=== PATIENT | female | born 1950 | race Caucasian/White ===

== ENCOUNTER 2017-10-21 12:19 | Emergency (ER) | payer MEDICARE, MEDICAID ==
--- NOTE | 2017-10-21 12:29 | ER Report ---
History and Physical Time Seen By MD: 12:29 HPI/ROS CHIEF COMPLAINT: Chest pain HISTORY OF PRESENT ILLNESS: This is a 66-year-old female presents to the emergency department for chest pain. Patient states that [place] is [place] became fatigued at around 10:[address] [facility] to rest, about 11:30 she developed some left-sided chest pain into the left arm and neck. Patient had a transient episode of nausea, no vomiting she also states that she was diaphoretic however she is unsure if this is related to the heat. Patient became concerned turnaround and drove herself to the hospital for further evaluation. Patient arrives alert and oriented. Chest pain is resolving. No rashes, shortness of breath, headaches or any other complaints at this time. REVIEW OF SYSTEMS: Constitutional: As above. Eyes: No discharge. ENT: No sore throat. Cardiovascular: As above. Respiratory: No cough, no shortness of breath. Gastrointestinal: As above. Genitourinary: No hematuria. Musculoskeletal: No back pain. Skin: No rashes. Neurological: No headache. Allergies: Coded Allergies: Penicillins (Verified Allergy, Mild, 10/21/17) NSAIDS (Non-Steroidal Anti-Inflamma (Verified Allergy, Unknown, 10/21/17) Sulfa (Sulfonamide Antibiotics) (Verified Allergy, Unknown, 10/21/17) latex (Verified Allergy, Unknown, 10/21/17) Home Meds No Active Prescriptions or Reported Meds Past Medical/Surgical History The patient has a past medical and surgical history of hypertension, had "some cardiac tests done recently, everything was negative", arthritis, back pain, neck pain, hysterectomy, right wrist surgery. Reviewed Nurses Notes: Yes Constitutional Vital Sign - Last 24 Hours 10/21/17 10/21/17 10/21/17 10/21/17 12:19 12:23 12:26 12:34 Temp 98.4 Pulse ??? 107 99 Resp 18 15 B/P (MAP) 154/92 (112) 154/92 Pulse Ox 88 93 O2 Delivery Room Air 10/21/17 10/21/17 10/21/17 10/21/17 12:49 13:00 13:04 13:19 Pulse 97 95 91 Resp 19 15 16 B/P (MAP) 148/89 (108) 136/83 (100) Pulse Ox 92 89 88 7/10/18 7/10/18 7/10/18 7/10/18 13:30 13:34 13:49 14:00 Pulse 85 87 Resp 20 15 B/P (MAP) 125/69 (87) 129/81 (97) Pulse Ox 98 98 10/21/17 10/21/17 10/21/17 10/21/17 14:04 14:09 14:30 14:39 Pulse 78 87 86 Resp 15 10 15 B/P (MAP) 131/90 (104) Pulse Ox 98 99 97 10/21/17 10/21/17 10/21/17 10/21/17 14:54 15:09 15:24 15:39 Pulse 82 87 88 85 Resp 14 14 14 18 Pulse Ox 97 10/21/17 15:54 Pulse 85 Resp 12 B/P (MAP) 106/62 (77) Intake and Output 10/21/17 10/21/17 10/22/17 14:59 22:59 06:59 Intake Total 1000 ml Balance 1000 ml Physical Exam General Appearance: The patient is alert, has no immediate need for airway protection and no signs of toxicity. Eyes: Pupils equal and round no pallor or injection. ENT, Mouth: Mucous membranes are moist. Respiratory: There are no retractions, lungs are clear to auscultation. Cardiovascular: Regular rate and rhythm, no murmurs, clicks or rubs. Gastrointestinal: Abdomen is soft and non tender, no masses, bowel sounds normal. Neurological: Alert and oriented 4. Moving all extremities. Following all commands. No focal neuro deficits. Skin: Warm and dry, no rashes. Musculoskeletal: Neck is supple non tender. Extremities are nontender, nonswollen and have full range of motion. DIFFERENTIAL DIAGNOSIS: After history and physical exam differential diagnosis was considered for chest pain including but not limited to myocardial ischemia, pericarditis pulmonary embolus, chest wall pain, pleural inflammation and pulmonary infectious causes. Medical Decision Making Data Points Result Diagram: 10/21/17 1235 10/21/17 1235 Laboratory Hematology Test 10/21/17 12:35 10/21/17 15:03 Red Blood Count 4.88 M/uL (4.17-5.56) Mean Corpuscular Volume 89.3 fL (80.0-96.0) Mean Corpuscular Hemoglobin 30.4 pg (26.0-33.0) Mean Corpuscular Hemoglobin Concent 34.0 g/dL (32.0-36.0) Red Cell Distribution Width 13.3 % (11.5-14.5) Mean Platelet Volume 8.8 fL (7.2-11.1) Neutrophils (%) (Auto) 69.0 % (39.4-72.5) Lymphocytes (%) (Auto) 21.3 % (17.6-49.6) Monocytes (%) (Auto) 6.9 % (4.1-12.4) Eosinophils (%) (Auto) 2.0 % (0.4-6.7) Basophils (%) (Auto) 0.8 % (0.3-1.4) Nucleated RBC Relative Count (auto) 0.2 /100WBC Neutrophils # (Auto) 6.6 K/uL (2.0-7.4) Lymphocytes # (Auto) 2.0 K/uL (1.3-3.6) Monocytes # (Auto) 0.7 K/uL (0.3-1.0) Eosinophils # (Auto) 0.2 K/uL (0.0-0.5) Basophils # (Auto) 0.1 K/uL (0.0-0.1) Nucleated RBC Absolute Count (auto) 0.01 K/uL D-Dimer Quantitative (PE/DVT) 0.29 ug/ml (0-0.50) Sodium Level 141 mmol/L (137-145) Potassium Level 3.9 mmol/L (3.5-5.0) Chloride Level 102 mmol/L (98-107) Carbon Dioxide Level 29 mmol/L (22-31) Blood Urea Nitrogen 12 mg/dl (7-18) Creatinine 0.70 mg/dl (0.52-1.04) Glomerular Filtration Rate Calc > 60.0 Random Glucose 151 mg/dl (75-110) Calcium Level 9.3 mg/dl (8.4-10.2) Total Bilirubin 0.4 mg/dl (0.2-1.3) Aspartate Amino Transf (AST/SGOT) 21 U/L (0-35) Alanine Aminotransferase (ALT/SGPT) 23 U/L (0-56) Alkaline Phosphatase 72 U/L (0-126) Total Protein 7.4 g/dl (6.3-8.2) Albumin 4.1 g/dl (3.5-5.0) Troponin I < 0.012 ng/ml Chemistry Test 10/21/17 12:35 10/21/17 15:03 White Blood Count 9.6 k/uL (4.5-11.0) Red Blood Count 4.88 M/uL (4.17-5.56) Hemoglobin 14.8 g/dL (12.0-16.0) Hematocrit 43.6 % (34.0-47.0) Mean Corpuscular Volume 89.3 fL (80.0-96.0) Mean Corpuscular Hemoglobin 30.4 pg (26.0-33.0) Mean Corpuscular Hemoglobin Concent 34.0 g/dL (32.0-36.0) Red Cell Distribution Width 13.3 % (11.5-14.5) Platelet Count 297 K/uL (150-450) Mean Platelet Volume 8.8 fL (7.2-11.1) Neutrophils (%) (Auto) 69.0 % (39.4-72.5) Lymphocytes (%) (Auto) 21.3 % (17.6-49.6) Monocytes (%) (Auto) 6.9 % (4.1-12.4) Eosinophils (%) (Auto) 2.0 % (0.4-6.7) Basophils (%) (Auto) 0.8 % (0.3-1.4) Nucleated RBC Relative Count (auto) 0.2 /100WBC Neutrophils # (Auto) 6.6 K/uL (2.0-7.4) Lymphocytes # (Auto) 2.0 K/uL (1.3-3.6) Monocytes # (Auto) 0.7 K/uL (0.3-1.0) Eosinophils # (Auto) 0.2 K/uL (0.0-0.5) Basophils # (Auto) 0.1 K/uL (0.0-0.1) Nucleated RBC Absolute Count (auto) 0.01 K/uL D-Dimer Quantitative (PE/DVT) 0.29 ug/ml (0-0.50) Glomerular Filtration Rate Calc > 60.0 Calcium Level 9.3 mg/dl (8.4-10.2) Total Bilirubin 0.4 mg/dl (0.2-1.3) Aspartate Amino Transf (AST/SGOT) 21 U/L (0-35) Alanine Aminotransferase (ALT/SGPT) 23 U/L (0-56) Alkaline Phosphatase 72 U/L (0-126) Total Protein 7.4 g/dl (6.3-8.2) Albumin 4.1 g/dl (3.5-5.0) Troponin I < 0.012 ng/ml Coagulation Test 10/21/17 12:35 D-Dimer Quantitative (PE/DVT) 0.29 ug/ml EKG/Imaging EKG Interpretation 12 lead EKG: Time of EKG 1226. Rhythm: Normal sinus rhythm, ventricular rate 97 bpm. [place]: normal QRS: normal ST segments: No ST depression or elevation identified. Imaging Location: [facility] Patient: Capri Summers : 1950 Visit/Account:[id number] Date of Sevice: 10/21/2017 2 VIEWS CHEST INDICATION: Chest pain, left arm pain and numbness COMPARISON: None available FINDINGS: Heart size within normal limits. There is mild pulmonary hyperinflation. No evidence of acute infiltrate, consolidation, effusion or pneumothorax. No acute bony finding. Mild spondylotic changes in the spine. IMPRESSION: 1. Mild hyperinflation without acute finding. Report Dictated By: Oj Connolly MD at 10/21/2017 1:10 PM Report E-Signed By: Oj Connolly MD at 10/21/2017 1:11 PM WSN:[id number] ED Course/Re-evaluation Clinical Indication for ER IV: Hydration, IV Access ED Course The patient was admitted to room. A history physical were obtained. Differential diagnoses were considered. IV was started. A CBC, CMP, troponin and d-dimer were obtained. Lab studies unremarkable. Negative troponin, negative d-dimer. A 1 L normal saline bolus was given. A repeat troponin was negative. Two-view chest x-ray was negative for any acute cardiopulmonary processes. EKG showing normal sinus rhythm no acute findings. I did review the lab studies and the chest x-ray with the patient. I did tell her I do not have a clear explanation as to why she is having this chest pain. I did tell her however could be related to the altitude and suggested a rapid retreat from this elevation she is on her way through to [place]. The patient is in agreement with this plan of care, she is discharged home. Patient is pain-free at the time of discharge. No shortness of breath. The patient was also encouraged to follow up in the nearest emergency department should she have recurrent chest pain. Decision to Disposition Date: Oct 21, 2017 Decision to Disposition Time: 15:48 Depart Departure Latest Vital Signs Vital Signs Date Time Temp Pulse Resp B/P (MAP) Pulse Ox O2 Delivery O2 Flow Rate FiO2 10/21/17 15:54 85 12 106/62 (77) 10/21/17 14:54 97 10/21/17 12:26 98.4 Room Air Impression: Primary Impression: Chest pain of uncertain etiology Condition: Improved Disposition: HOME OR SELF-CARE New Scripts No Active Prescriptions or Reported Meds Patient Instructions: Chest Pain (ED) Additional Instructions: All of your laboratory studies, chest x-ray looked good today, no indication of heart or lung involvement. Your symptoms could be related to the elevation, I suggest going to a lower elevation as soon as possible. Be sure to drink plenty of water. Get plenty of rest. Take your medications as prescribed. If on the way back home U experience recurrent chest pain be sure to follow up in their is to emergency department. VAL LAROSE PRODUCTION MECH[employer]IC-BC Oct 21, 2017 12:29
[2017-10-21] MEDS ORDERED: NS(*) 0.9% 1000 ML BAG 1,000 ML IV ONE (12:35)
[2017-10-21] MEDS ORDERED: ASPIRIN 81 MG CHEW PO ONE (12:35)
[2017-10-21 12:49] LABS: PLATELET COUNT, AUTOMATED 297 K/uL (150-450)
--- NOTE | 2017-10-21 13:16 | RADIOLOGY IMAGING REPORT ---
FACILITY: [facility] [place] PATIENT NAME: Capri Summers : 1950 MR: [id number] V: [id number] EXAM DATE: ORDERING PHYSICIAN: VAL LAROSE TECHNOLOGIST: Location: [facility] Patient: Capri Summers : 1950 Visit/Account:[id number] Date of Sevice: 10/21/2017 2 VIEWS CHEST INDICATION: Chest pain, left arm pain and numbness COMPARISON: None available FINDINGS: Heart size within normal limits. There is mild pulmonary hyperinflation. No evidence of acute infiltrate, consolidation, effusion or p neumothorax. No acute bony finding. Mild spondylotic changes in the spine. IMPRESSION: 1. Mild hyperinflation without acute finding. Report Dictated By: Oj Connolly MD at 10/21/2017 1:10 PM Report E-Signed By: Oj Connolly MD at 10/21/2017 1:11 PM WSN:[id number]
--- NOTE | 2017-10-21 14:40 | EKG ---
[facility] PATIENT NAME: SRINIVAS MORALES : [id number] MR: [id number] V: [id number] EXAM DATE: ORDERING PHYSICIAN: VAL LAROSE TECHNOLOGIST: JESSIE Haas Reason : Blood Pressure : / mmHG Vent. Rate : 097 BPM Atrial Rate : 097 BPM P-R Int : 184 ms QRS Dur : 096 ms QT Int : 352 ms P-R-T Axes : 060 055 053 degrees QTc Int : 447 ms Normal sinus rhythm Normal ECG No previous ECGs available Confirmed by NADER WALLS ([id number]) on 10/22/2017 6:40:30 AM Referred By: Confirmed By:NADER WALLS
[2017-10-21 15:54] VITALS: BP 106/62
== END 2017-10-21 15:55 | disposition home or self-care (01) ==
LOC: ER 12:22
DX: R07.89 Other chest pain (principal)
CPT/HCPCS: 36415; 71046; 84484; 85025; 85379; 93005; 96360; 96361; 99284; A9270; J7030; 82040; 82247; 82310; 82374; 82435; 82565; 82947; 84075; 84132; 84155; 84295; 84450; 84460; 84520